=== PATIENT | male | born 1960 | race Hispanic/Latino ===

== ENCOUNTER 2017-03-12 14:32 | Outpatient (CLI) | payer OTHER ==
--- NOTE | 2017-03-12 16:53 | XRay Report ---
XRAY LEFT KNEE FOUR VIEWS: 03/12/17 14:32:00 CLINICAL: Pain. FINDINGS: No fracture or dislocation. No joint effusion. Mild medial joint space narrowing. The lateral joint space is normal. Small patellofemoral osteophytes with medial joint space narrowing. No joint effusion. The soft tissues are normal. IMPRESSION: Mild osteoarthritis.
== END 2017-03-12 14:33 | disposition home or self-care (01) ==
LOC: SPVIMAG 14:32
PROVIDERS: ATTEND Orthopaedic Surgery Sports Medicine
DX: M17.12 Unilateral primary osteoarthritis, left knee (principal)